=== PATIENT | female | born 1960 ===

== ENCOUNTER 2024-10-08 14:58 | Inpatient (IN) | payer OTHER ==
[~2024-10-08] VITALS: Ht 167.6 cm; Wt 230.0 kg
[2024-10-08] MEDS ORDERED: Aluminum Hydroxide 320MG/5ML 473 ML PO PRN (15:55)
[2024-10-08] MEDS ORDERED: Haloperidol Lactate Inj. 5 MG/ML Injection IM PRN (16:00)
[2024-10-08] MEDS ORDERED: DiphenhydrAMINE HCl 50 MG/ML 1ML Vial IM PRN (16:00)
[2024-10-08] MEDS ORDERED: Ondansetron 4 MG SoluTab MM PRN (16:05)
[2024-10-08] MEDS ORDERED: Polyethylene Glycol 3350 17 gm PO PRN (16:05)
--- NOTE | 2024-10-08 17:37 | NUR ---
ADMISSION NOTE PT BROUGHT TO [facility] BY SECURED TRANSPORT. PT ARRIVED CALM, COOPERATIVE, AND A&O X3. SHE WAS NOT AWARE OF WHERE SHE WAS. PT WAS THEN ORIENTED TO PLACE. BELONGINGS WERE GATHERED AND PLACED IN HER TOTE BY A. TWO RN SKIN CHECK WAS PERFORMED WITH BRANDYN RN AND CHRIS RN. PT HAS MULTIPLE SCARS TO BILATERAL BREASTS AND BUE. RANDOM SMALLER BRUISING TO BLE AND SINDI. 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 SHE STATES SHE LAST USED X4 YEARS AGO. SHE ALSO STATES SHE LAST USED METHAMPHETAMINE X3 DAYS AGO. PT STATES SHE WAS FEELING SUICIDAL AND WAS HAVING THOUGHTS OF TAKING ALL OF HER MEDICATIONS TO END HER LIFE. PT THEN TOOK HERSELF TO THE ED. SHE WAS HEARING VOICES TELLING HER TO KILL HERSELF. PT ARRIVES TIRED AND GROGGY. SHE WAS COOPERATIVE WITH ADMISSION ASSESSMENTS WITH THE EXCEPTION THAT SHE KEPT FALLING ASLEEP AND WOULD START LIGHTLY SNORING. HER PERSONAL DENTURE CREAM IS IN HER MED ROOM BOX. ALL FORMS WERE SIGNED AND IN HER CHART. PT WAS ORIENTED TO THE UNIT AND HER ROOM. PT THEN WENT TO HER ROOM TO SLEEP. PT DOES HAVE ONE RING ON THAT WAS NOT ABLE TO BE REMOVED FROM HER R 4TH FINGER. NO ACTURE EVENTS SINCE ARRIVAL.
[2024-10-08 18:17] VITALS: BP 107/84
[2024-10-08 20:03] VITALS: BP 133/73
[2024-10-08] MEDS ORDERED: ABILIFY MYCITE15 M2 PO (21:27)
[2024-10-08] MEDS ORDERED: Aspir 8181 MG PO (21:28)
[2024-10-08] MEDS ORDERED: BUPROPION XL150 M1 PO (21:29)
[2024-10-08] MEDS ORDERED: CATAPRES0.2 M1 PO (21:31)
[2024-10-08] MEDS ORDERED: VOLTAREN ARTHRI20 GM TOP (21:33)
[2024-10-08] MEDS ORDERED: DOCU100 PO (21:34)
[2024-10-08] MEDS ORDERED: LORA10ER PO (21:36)
[2024-10-08] MEDS ORDERED: LORA.5 PO (21:37)
[2024-10-08] MEDS ORDERED: MULVITA PO (21:37)
[2024-10-08] MEDS ORDERED: OLAN5 PO (21:38)
[2024-10-08] MEDS ORDERED: ONDA4ODT MM (21:40)
[2024-10-08] MEDS ORDERED: MIRALAX17 GM PO (21:40)
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
--- NOTE | 2024-10-09 06:07 | NUR ---
REFUSING LAB LAB HERE FOR AM FASTING LABS. PATIENT REFUSING TO GET UP FOR LAB DESPITE 2 RN'S EXPLAINING NEED FOR FASTING RISK PANEL TO BE DRAWN BEFORE BREAKFAST. EXPLAINED THAT DOCTOR MIGHT NOT ORDER SOME MEDICATIONS WITHOUT BASELINE LABS DRAWN. PATIENT CONTINUES TO REFUSE TO BE DRAWN, AND ASKED AGAIN FOR ATIVAN. EXPLAINED THAT WE DON'T HAVE ATIVAN ORDER FOR HER. PATIENT STATES "WHAT EVER" AND CLOSING EYES AND IGNORING NURSING STAFF.
[2024-10-09 08:52] VITALS: BP 158/103
[2024-10-09] MEDS ORDERED: Multivitamins 1 Tab PO SCH (09:00)
--- NOTE | 2024-10-09 10:26 | NUR ---
SHIFT ASSESSMENT: PT DENIED SI, HI AND AVH. SHE ENDORSED PAIN AND ANXIETY 10/10w AND IMMEDIATLY BEGAN TO SNORE. SHE DECLINED GROUPS. PT REPORTED HER MOOD "OK." PT GOT UP FOR BREAKFAST AND NOW REMAINS IN BED.
--- NOTE | 2024-10-09 13:32 | NUR ---
PT WAS RESPONDING TO INTERNAL STIMULI DURING THE ADMISSION HURSING HISTORY. TALKING TO AN UNSEEN PERSON, CONFERSATION WAS NOT UNDERSTANDABLE TO STAFF. SHE WAS MAKING MOTIONS WITH HER HANDS TO PUSH SOMEONE AWAY FROM THE FRONT OF HER BODY.
[2024-10-09 19:45] VITALS: BP 153/94
--- NOTE | 2024-10-10 04:16 | NUR ---
SHIFT SUMMARY PATIENT RESTING IN BED AWAKENS TO SLIGHT STIMULI. VERBALIZED THAT SHE WAS "JUST TIRED" DENIES SI, HI OR VH. VERBALIZED THAT AUDITORY HALLUCINATIONS WERE DISTANT VOICES NON-COMMANDING. THEN AT 194 PATIENT STARTED YELLING OUT "GET OUT OF MY FACE" AND "YOU'RE TO CLOSE" WHEN ROOM WAS EMPTY. WHEN QUESTIONED PATIENT SHE REQUESTING ATIVAN, HS MEDICATIONS GIVEN WITH PRN ATIVAN. AT 2299 PATIENT TALKING IN HER SLEEP VERBALIZING "THEIR GOING TO MURDER ME" PATIENT AWAKED EASILY TO SLIGHT STIMULI, DENIES NEED FOR MEDICATIONS TO HELP HER RELAX AND SLEEP MORE DEEPLY. 2344 PATIENT GETTING LOUDER AND MORE FREQUENT IN YELLING OUT IN HER SLEEP, PATIENT CONTINUES TO REF TRAZODONE OR ZYPREXA. PATIENT ENCOURAGED TO SLEEP MORE ON HER SIDE TO HELP WITH SLEEP APNEA. PATIENT SLEEPING QUIETLY WITH RESP EVEN AND UNLABORED THE REST OF THE NIGHT. CONTINUE TO MONITOR Q15MIN. RING REMAINS IN PLACE TO HER RIGHT RING FINGER.
--- NOTE | 2024-10-10 07:20 | NUR ---
IMPORTANT DISCHARGE INFORMATION PATIENT TO BE DISCHARGED TODAY. HER TRANSPORT WILL BE HERE AT 2PM TO TAKE HER BACK TO [place] . SHE WILL BE DROPPED OFF AT [facility] REQUESTED. FOLLOW UP: HER PCP IS DR. LONG AND THEY WILL CALL HER FOR A [place] APPOINTMENT. PHARMACY: [facility]ALTH [facility] FAX = RESOURCES: PROVIDED RESOURCES FOR SHELTERS AND FOOD PANTRIES. ENCOURAGED HER TO UTILIZE [facility] SERVICES.
[2024-10-10 07:47] LABS: CHOL/HDL RATIO 1.8; Cholesterol 156 mg/dL (50-200); HDL Cholesterol 87 mg/dL (>39); LDL/HDL RATIO 0.5; Low Density Lipoprotein Chol 47 mg/dL (0-110); Triglycerides 111 mg/dL (30-160); Very Low Density Lipoprot Chol 22 mg/dL (6-32)
[2024-10-10 08:54] VITALS: BP 145/100
--- NOTE | 2024-10-10 14:28 | NUR ---
DISCHARGE SUMMARY PT WAS GIVEN D/C PACKET WITH PRINTED INFORMATION PRINTED BY AARON RODRÍGUEZ. D/C SIGNATURE PAGE SIGNED BY PT AND THIS RN. SHE WAS GIVEN ALL HER BELONGINGS AND DRESSED HERSELF. PT WAS GIVEN A SACK LUNCH AND GATORADE PRIOR TO D/C. SHE WAS ABULATED OUT TO MEDICAL TRANSPORT VEHICLE BY THIS RN.
== END 2024-10-10 14:17 | disposition home or self-care (01) | DRG 885 ==
LOC: BHU 14:58
PROVIDERS: ADMIT Psychiatry & Neurology Psychiatry
DX: F33.9 Major depressive disorder, recurrent, unspecified (principal); R45.851 Suicidal ideations; Z59.00 Homelessness unspecified; F13.90 Sedative, hypnotic, or anxiolytic use, unspecified, uncomplicated; F15.90 Other stimulant use, unspecified, uncomplicated; F19.90 Other psychoactive substance use, unspecified, uncomplicated; Z79.1 Long term (current) use of non-steroidal anti-inflammatories (NSAID); Z79.82 Long term (current) use of aspirin; Z79.899 Other long term (current) drug therapy; Z88.1 Allergy status to other antibiotic agents; Z88.6 Allergy status to analgesic agent; Z88.5 Allergy status to narcotic agent; Z88.8 Allergy status to other drugs, medicaments and biological substances
CPT/HCPCS: 36415; 80061; 83036; A9270

== ENCOUNTER 2025-01-26 09:53 | Inpatient (IN) | payer OTHER ==
[~2025-01-26] VITALS: Ht 167.6 cm; Wt 227.0 kg
[~2025-01-26 09:53] MED LIST: ABILIFY MYCITE15 M2 PO; Aspir 8181 MG PO; BUPROPION XL150 M1 PO; CATAPRES0.2 M1 PO; DOCU100 PO; LORA.5 PO; LORA10ER PO; MIRALAX17 GM PO; MULVITA PO; OLAN5 PO; ONDA4ODT MM; VOLTAREN ARTHRI20 GM TOP
[2025-01-26 12:23] VITALS: BP 138/102
[2025-01-26 12:41] VITALS: BP 138/102
[2025-01-26] MEDS ORDERED: Aluminum Hydroxide 320MG/5ML 473 ML PO PRN (12:50)
[2025-01-26] MEDS ORDERED: DiphenhydrAMINE HCl 50 MG/ML 1ML Vial IM PRN (12:50)
[2025-01-26] MEDS ORDERED: Polyethylene Glycol 3350 17 gm PO PRN (12:50)
[2025-01-26] MEDS ORDERED: FLU VACC TS2025-26(6MOS UP)/PF 45 MCG/0.5 ML SYRINGE IM SCH (12:55)
[2025-01-26] MEDS ORDERED: LORazepam 2 MG/ML 1ML Injection IM PRN (12:55)
[2025-01-26] MEDS ORDERED: Haloperidol Lactate Inj. 5 MG/ML Injection IM PRN (12:55)
[2025-01-26] MEDS ORDERED: Ondansetron 4 MG SoluTab MM PRN (13:00)
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
--- NOTE | 2025-01-26 18:12 | NUR ---
PRN 0.5MG ATIVAN GIVEN FOR ANXIETY. PT UP TO NURSING STATION UPSET THAT SH WANTE TO BE DICHARGED NOW. LOUDLY STTING THAT SHE IS VOLUNTARY AND TO "CALL THE DOCTOR, I WANT TO LEAVE NOW" SHE STATES [facility] IS TOMORROW. DR. MCDOWELL NOTIFIED. HE REPORTS HE WILL NOT DISCHARGE TODAY AND HOLD MAY NEED TO BE PLACED. EXPLAINED TO PATIENT. SHE VERBA;IZED UNDERSTANDING. TOOK ATIVAN AND RETURNED TO BED
[2025-01-26 20:28] VITALS: BP 142/82
--- NOTE | 2025-01-26 21:54 | NUR ---
MASS SCORE: PATIENT REQUESTED AND WAS GIVEN ATIVAN 0.5 MG PO FOR C/O ANXIETY/PANIC. MASS SCORE 3, VERY MILD AGITATION. THE MEDICATION WAS EFFECTIVE, PATIENT WAS RESTING UPON FOLLOW UP. CONTINUING TO MONITOR.
--- NOTE | 2025-01-26 23:25 | NUR ---
MID SHIFT SUMMARY: PATIENT WAS IN BED RESTING AT THE BEGINNING OF THE SHIFT. SHE DID NOT SPEAK TO RN, BUT SHOOK HER LEG IN RESPONSE TO QUESTIONS. SHE DID GET UP AFTER A TIME AND WAS ABLE TO ANSWER DONOR RECRUITER QUESTIONS IN A LOGICAL AND LINEAR MANNER. SHE DENIED SUICIDAL IDEATION, THOUGHTS OF SELF HARMING AND A/V/T HALLUCINATIONS AT THIS TIME. SHE PRESENTED BLUNTED AND DISTRACTED. SHE PARTICIPATED IN SNACK AND WRAP UP GROUP, ALTHOUGH SHE DID NOT FILL OUT A PAPER. SHE REQUESTED THAT RN BRING MEDICATIONS DOWN TO HER. SHE REQUESTED AND WAS GIVEN ATIVAN 0.5 MG PO FOR MASS SCORE OF 3, WHICH WAS EFFECTIVE. SHE REMAINED IN BED AND WAS NOTED TO BE RESTING QUIETLY WITH EYES CLOSED AND RESPIRATIONS CONFIRMED. CONTINUING TO MONITOR FOR SAFETY WITH Q15 MINUTE CHECKS. WILL GIVE REPORT TO RN WHO IS TAKING OVER CARE OF PATIENT.
--- NOTE | 2025-01-27 04:21 | NUR ---
END OF SHIF REPORT SINCE ASSUMNG CARE AT MIDNIGHT, PATIENT HAS BEEN RESTING QUIETLY IN HER BED. NO SIGNS OF DISTRESS WERE NOTED. NO PRN MEDICATIONS WERE UTILIZED
[2025-01-27 08:34] VITALS: BP 128/79
[2025-01-27] MEDS ORDERED: Multivitamins 1 Tab PO SCH (09:00)
--- NOTE | 2025-01-27 12:30 | NUR ---
PRN MEDICATION PT CAME UP TO THE MATCHING MACHINE OPERATOR AND REPORTED ANXIETY AND REQUESTED ATIVAN. MASS SCORE OF 8 (SEE MASS DOCUMENTATION). MEDICATION GIVEN AT THIS TIME.
--- NOTE | 2025-01-27 16:54 | NUR ---
PRN MEDICATION PT GIVEN PRN ATIVAN FOR ANXIETY. PT REPORTS THAT SHE IS ALLERGIC TO VISTARIL AND BREAKS OUT IN HIVES WHEN SHE HAS IT. MASS SCORE COMPLETED (SEE MASS DOCUMENTATION).
--- NOTE | 2025-01-27 17:06 | NUR ---
SHIFT SUMMARY PT A/O X4; COOPERATIVE WITH CARE. PT DENIES SI, HI, AVTH. PT IS WITHDRAWN AND HAS BEEN IN HER ROOM FOR THE MAJORITY OF THE SHIFT. PT ENDORSES ANXIETY RELATED TO BEING IN THE U AND HAS BEEN MEDICATED TWICE FOR ANXIETY THIS SHIFT. PT RECEIVED ATIVAN AND REPORTS THAT SHE IS ALLERGIC TO VISTARIL. VISTARIL IS LISTED AN ALLERGY IN EMR. HER AFFECT IS BLUNTED AND SOMEWHAT IRRITABLE. SHE CONTINUES TO BE MONITORED Q15 PER UNIT PROTOCOL FOR SAFETY AND WELLNESS.
[2025-01-27 20:35] VITALS: BP 139/90
--- NOTE | 2025-01-28 04:18 | NUR ---
SHIFT SUMMARY PT LAYING IN BED AT START OF SHIFT, AWAKES EASILY. SHE IS DISINTERESTED, GUARDED AND HAS A FLAT AFFECT AND POVERTY OF THOUGHT. SHE REPORTS HER MOOD "FLAT". SHE DENIES ANY SI, HI, THOUGHTS OF SELF HARM OR AVTH. SHE GOT UP FOR EVENING SNACK, WAS COMPLIANT WITH SCHEDULED MEDICATION AND WENT BACK TO BED. SHE HAS REMAINED IN BED THROUGHOUT THE NIGHT. NO PRN MEDICATIONS GIVEN DURING MY SHIFT. Q15 MINUTE CHECKS TO CONTINUE PER PT SAFETY AND WELLNESS.
[2025-01-28 09:09] VITALS: BP 110/72
--- NOTE | 2025-01-28 13:58 | NUR ---
DISCHARGE INFORMATION PT'S PHARMACY IS [facility]. PHONE: [phone] FAX: [phone]
--- NOTE | 2025-01-28 14:26 | NUR ---
Upon receiving a referral for spiritual care, I visited with the patient. She tells me about the of her son, her struggles with her SO and her SI. I explore her spiritual beliefs, her coping skills and resources. I provided therapeutic listening, gentle travel counselor automobile club and prayer. The patient responded well and showed signs of being comforted and of being encouraged in her alo.
--- NOTE | 2025-01-28 17:07 | NUR ---
SHIFT SUMMARY PT A/O X4; COOPERATIVE WITH CARE. PT DENIES SI, HI, AVTH. PT'S AFFECT IS FLAT BUT SHE HAS BEEN INTERACTING WITH HER PEERS MORE THIS SHIFT. PT TO DISCHARGE HOME BACK TO [place] TOMORROW. HER SON'S SERVICE IS TOMORROW AND SHE WOULD LIKE TO ATTEND. SHE HAS TRANSPORTATION SCHEDULED TO PICK HER UP AT 11:30. FOLLOW UP APPOINTMENTS MADE WITH [facility] AND [facility] IN [facility] HAS BEEN NOTIFIED OF HER DISCHARGE. INFORMED THAT [facility] WILL BE MEETING WITH HER TOMORROW ONCE SHE GETS BACK TO [place]. PT MEDICATION ONCE THIS SHIFT FOR ANXIETY PER EMR WITH GOOD EFFECT.
--- NOTE | 2025-01-29 05:23 | NUR ---
SHIFT SUMMARY PATIENT RESTING IN BED, AWAKENS TO SLIGHT STIMULI. DENIES SI, HI, OR AVTH. VERBALIZED THAT SHE FEELS READY TO GO HOME. REF HS SNACK, WANTING TO STAY IN BED. SLEEPING WELL T/O NIGHT RESP EVEN AND UNLABORED. CONTINUE TO MONITOR Q15MIN
--- NOTE | 2025-01-29 08:31 | NUR ---
NURSE NOTE PT C/O ANXIETY AND REQUESTING PRN ATIVAN. MASS SCORE OF 3. PT RATES ANXIETY 10/10. PT STATES SHE IS A PT AT [facility] FOR F/U.
[2025-01-29 08:45] LABS: CHOL/HDL RATIO 1.9; Cholesterol 152 mg/dL (50-200); HDL Cholesterol 78 mg/dL (>39); LDL/HDL RATIO 0.6; Low Density Lipoprotein Chol 48 mg/dL (0-110); Triglycerides 131 mg/dL (30-160); Very Low Density Lipoprot Chol 26 mg/dL (6-32)
[2025-01-29 09:02] VITALS: BP 104/68
--- NOTE | 2025-01-29 11:41 | NUR ---
DISCHARGE SUMMARY PT GIVEN COPY OF D/C PACKET AND LABS DONE DURING STAY, SHE STATES UNDERSTANDING OF FOLLOW UP APPOINTMENTS MADE. ACKNOWLEDGEMENT FORM SIGNED. A 30 DAY SUPPLY OF ALL D/C MEDICATIONS VERBALLY CALLED TO SEE [facility] IN [place], OR, TO [place], PER VERBAL DR. MCDOWELL. PT GIVEN HER BELONGINGS AND FORM SIGNED. SHE CHANGED HERSELF AND AMBULATED OUT OF BUILDING TO MEDICAL TRANSPORT.
== END 2025-01-29 11:43 | disposition home or self-care (01) | DRG 885 ==
LOC: BHU 09:53
PROVIDERS: ADMIT Psychiatry & Neurology Psychiatry
DX: F33.2 Major depressive disorder, recurrent severe without psychotic features (principal); R45.851 Suicidal ideations; Z59.00 Homelessness unspecified; K50.90 Crohn's disease, unspecified, without complications; F15.20 Other stimulant dependence, uncomplicated; F20.0 Paranoid schizophrenia; F19.10 Other psychoactive substance abuse, uncomplicated; Z23 Encounter for immunization; Z79.899 Other long term (current) drug therapy; Z79.1 Long term (current) use of non-steroidal anti-inflammatories (NSAID)
CPT/HCPCS: 36415; 80061; 83036; A9270